=== PATIENT | female | born 1985 | race Caucasian/White ===

== ENCOUNTER 2017-01-11 17:14 | Emergency (ER) | payer MEDICAID ==
[~2017-01-11] VITALS: Ht 162.6 cm; Wt 94.7 kg
[~2017-01-11 17:14] MED LIST: CARB200T PO; CLON1TAB23 PO; DULO60CA7 PO; ESOM20CA PO; ESZO2TAB34 PO; LEVE100020 PO; LORA-446 PO; OXYC-223 PO; OXYC15TA PO; PROP20TA PO
[2017-01-11] MEDS ORDERED: SODIUM CHLORIDE 0.9% 1,000 ML IV ONE (17:53)
[2017-01-11] MEDS ORDERED: SODIUM CHLORIDE FLUSH 10ML SYR IVF ONE (18:00)
[2017-01-11] MEDS ORDERED: ONDANSETRON 2MG/ML, 2ML IVPush ONE (18:00)
[2017-01-11] MEDS ORDERED: ONDANSETRON 2MG/ML, 2ML ONE (18:16)
[2017-01-11] MEDS ORDERED: MORPHINE SULFATE 4 MG/ML, 1ML ONE ×3 (18:16→20:02)
[2017-01-11 18:32] LABS: ASPARTATE AMINO TRANSFERASE 46 U/L (15-37); BLOOD UREA NITROGEN 7 mg/dL (7-18)
[2017-01-11] MEDS: MORPHINE SULFATE 4 MG/ML, 1ML IVPush PRN ×2 (18:52→19:23)
[2017-01-11 19:12] LABS: PATH.CAST-FLAG NOT PRESENT; SPERM-FLAG NOT PRESENT; SRC-FLAG NOT PRESENT; XTAL-FLAG NOT PRESENT; YLC-FLAG NOT PRESENT
[2017-01-11] MEDS ORDERED: METOCLOPRAMIDE 5 MG/ML, 2ML IVPush ONE (20:00)
[2017-01-11] MEDS ORDERED: MORPHINE SULFATE 4 MG/ML, 1ML IVPush ONE (20:00)
[2017-01-11] MEDS ORDERED: METOCLOPRAMIDE 5 MG/ML, 2ML ONE (20:02)
[2017-01-11 21:18] VITALS: BP 108/56
== END 2017-01-11 21:21 | disposition home or self-care (01) ==
LOC: ED 19:21
DX: N30.90 Cystitis, unspecified without hematuria (principal); R10.84 Generalized abdominal pain; R11.2 Nausea with vomiting, unspecified; F15.10 Other stimulant abuse, uncomplicated; Z85.41 Personal history of malignant neoplasm of cervix uteri; Z90.49 Acquired absence of other specified parts of digestive tract; Z90.710 Acquired absence of both cervix and uterus; Z88.6 Allergy status to analgesic agent; Z88.8 Allergy status to other drugs, medicaments and biological substances
CPT/HCPCS: 36415; 74000; 74176; 80053; 81001; 83690; 85025; 87086; 96361; 96374; 96375; 96376; 99285; J2405; J2765; J7030

== ENCOUNTER 2017-03-10 11:17 | Emergency (ER) | payer MEDICAID ==
[~2017-03-10] VITALS: Ht 162.6 cm; Wt 94.8 kg
[2017-03-10 11:22] VITALS: BP 132/90
[2017-03-10 12:39] LABS: BLOOD UREA NITROGEN 7 mg/dL (7-18)
== END 2017-03-10 15:50 | disposition home or self-care (01) ==
LOC: ED 13:35
DX: S62.307A Unspecified fracture of fifth metacarpal bone, left hand, initial encounter for closed fracture (principal); N30.00 Acute cystitis without hematuria; R07.89 Other chest pain; G40.909 Epilepsy, unspecified, not intractable, without status epilepticus; Z88.6 Allergy status to analgesic agent; Z88.8 Allergy status to other drugs, medicaments and biological substances; Z85.41 Personal history of malignant neoplasm of cervix uteri; Y04.0XXA Assault by unarmed brawl or fight, initial encounter; Y93.89 Activity, other specified; Y99.8 Other external cause status; Y92.009 Unspecified place in unspecified non-institutional (private) residence as the place of occurrence of the external cause
CPT/HCPCS: 29125; 36415; 80048; 81001; 82040; 85025; 87086; 99285

== ENCOUNTER 2017-05-17 12:31 | Emergency (ER) | payer MEDICAID ==
[~2017-05-17 12:31] MED LIST changes: +ESZO2TAB22 PO; -ESZO2TAB34 PO; -OXYC-223 PO; +OXYC-306 PO
[2017-05-17 14:06] VITALS: BP 109/63
== END 2017-05-17 14:09 | disposition home or self-care (01) ==
LOC: ED 12:52
DX: S16.1XXA Strain of muscle, fascia and tendon at neck level, initial encounter (principal); S00.83XA Contusion of other part of head, initial encounter; S60.042A Contusion of left ring finger without damage to nail, initial encounter; Z76.0 Encounter for issue of repeat prescription; Z88.6 Allergy status to analgesic agent; Z88.8 Allergy status to other drugs, medicaments and biological substances; Y04.0XXA Assault by unarmed brawl or fight, initial encounter; Y93.89 Activity, other specified; Y92.89 Other specified places as the place of occurrence of the external cause; Y99.8 Other external cause status
CPT/HCPCS: 99284

== ENCOUNTER 2017-12-09 23:16 | Emergency (ER) | payer MEDICAID ==
[~2017-12-09] VITALS: Ht 165.1 cm; Wt 85.0 kg
[2017-12-09] MEDS ORDERED: NALOXONE 0.4 MG/ML, 1ML ONE (23:56)
[2017-12-10] MEDS ORDERED: SODIUM CHLORIDE 0.9% 1,000ML IVBOLUS ONE
[2017-12-10] MEDS ORDERED: NALOXONE 0.4 MG/ML, 1ML IVPush ONE
[2017-12-10 00:07] LABS: BASOPHILS # (AUTO) 0.08 x10^3/uL (0-0.1); BASOPHILS % (AUTO) 1 % (0-1); EOSINOPHILS # (AUTO) 0.29 x10^3/uL (0-0.4); EOSINOPHILS % (AUTO) 3 % (1-7); LYMPHOCYTES # (AUTO) 2.84 x10^3/uL (1-3.4); LYMPHOCYTES % (AUTO) 33 % (22-44); MD NO; MEAN CORPUSCULAR HEMOGLOBIN 28.8 pg (27.0-34.8); MEAN CORPUSCULAR HGB CONC 33.6 g/dL (32.4-35.8); MEAN CORPUSCULAR VOLUME 85.6 fL (80-100); MEAN PLATELET VOLUME 8.4 fL (7.4-10.4); MONOCYTES # (AUTO) 0.56 x10^3/uL (0.2-0.8); MONOCYTES % (AUTO) 7 % (2-9); NEUTROPHILS # (AUTO) 4.75 x10^3/uL (1.8-6.8); NEUTROPHILS % (AUTO) 56 % (42-75); PLATELET COUNT 276 x10^3/uL (130-400); RED BLOOD COUNT 5.14 x10^6/uL (3.82-5.3); RED CELL DISTRIBUTION WIDTH 13.8 % (9.6-15.2)
[2017-12-10 00:18] LABS: ALANINE AMINOTRANSFERASE 47 U/L (12-78); ALBUMIN 3.7 g/dL (3.4-5.0); ANION GAP 6 mmol/L (5-15); CALCIUM 8.7 mg/dL (8.5-10.1); CHLORIDE 107 mmol/L (98-107); SALICYLATE LEVEL 3.1 mg/dL (2.8-20.0)
[2017-12-10 00:20] LABS: ALKALINE PHOSPHATASE 166 U/L (45-117); BILIRUBIN,TOTAL 0.3 mg/dL (0.2-1.0); CREATININE 0.86 mg/dL (0.55-1.02); TOTAL PROTEIN 7.6 g/dL (6.4-8.2)
[2017-12-10 00:22] LABS: ACETAMINOPHEN < 2 mcg/mL (10-30)
[2017-12-10 02:03] LABS: HCG UR SG 1.033 (1.003-1.030)
[2017-12-10 02:05] LABS: MICROSCOPIC INDICATED
[2017-12-10 02:18] LABS: CULTURE INDICATED? NO
[2017-12-10] MEDS ORDERED: NALOXONE 1 MG/ML, 2ML ONE (02:58)
[2017-12-10] MEDS ORDERED: NALOXONE 1 MG/ML, 2ML IVPush ONE (03:00)
[2017-12-10 04:02] VITALS: BP 124/74
== END 2017-12-10 04:53 | disposition home or self-care (01) ==
LOC: ED 23:56
DX: R55 Syncope and collapse (principal); F11.129 Opioid abuse with intoxication, unspecified; I10 Essential (primary) hypertension; F31.9 Bipolar disorder, unspecified; E11.9 Type 2 diabetes mellitus without complications; Z90.49 Acquired absence of other specified parts of digestive tract; Z85.9 Personal history of malignant neoplasm, unspecified; Z88.8 Allergy status to other drugs, medicaments and biological substances
CPT/HCPCS: 36415; 70450; 80053; 80307; 80329; 81001; 81025; 85025; 93005; 96374; 96376; 99285; J2310; J7030; G0480

== ENCOUNTER 2018-02-02 07:09 | Emergency (ER) | payer MEDICAID ==
[~2018-02-02] VITALS: Ht 162.6 cm; Wt 92.4 kg
[2018-02-02] MEDS ORDERED: HYDROcodone/APAP 5/325 TABLET ONE (07:52)
[2018-02-02] MEDS ORDERED: HYDROcodone/APAP 5/325 TABLET PO ONE (08:00)
[2018-02-02 10:34] VITALS: BP 133/76
== END 2018-02-02 10:49 | disposition left against medical advice (07) ==
LOC: ED 08:30
DX: S70.02XA Contusion of left hip, initial encounter (principal); S30.810A Abrasion of lower back and pelvis, initial encounter; F20.3 Undifferentiated schizophrenia; G40.909 Epilepsy, unspecified, not intractable, without status epilepticus; E11.9 Type 2 diabetes mellitus without complications; I10 Essential (primary) hypertension; F31.9 Bipolar disorder, unspecified; F17.210 Nicotine dependence, cigarettes, uncomplicated; Z85.9 Personal history of malignant neoplasm, unspecified; Z76.0 Encounter for issue of repeat prescription; T74.21XA Adult sexual abuse, confirmed, initial encounter; W26.0XXA Contact with knife, initial encounter; Y93.89 Activity, other specified; Y92.59 Other trade areas as the place of occurrence of the external cause; Y99.8 Other external cause status
CPT/HCPCS: 99284

== ENCOUNTER 2018-04-03 09:24 | Emergency (ER) | payer MEDICAID ==
[~2018-04-03] VITALS: Ht 165.1 cm; Wt 80.0 kg
[2018-04-03 09:30] VITALS: BP 141/92
[2018-04-03] MEDS ORDERED: ONDANSETRON ODT 4 MG PO ONE (10:30)
[2018-04-03] MEDS ORDERED: MAALOX/HYOSCYAMINE/LIDOCAINE 45 ML BTL ONE (13:26)
== END 2018-04-03 12:33 | disposition home or self-care (01) ==
LOC: ED 09:32
DX: S06.0X9A Concussion with loss of consciousness of unspecified duration, initial encounter (principal); S02.31XA Fracture of orbital floor, right side, initial encounter for closed fracture; I10 Essential (primary) hypertension; E11.9 Type 2 diabetes mellitus without complications; Z90.49 Acquired absence of other specified parts of digestive tract; Z90.710 Acquired absence of both cervix and uterus; F17.200 Nicotine dependence, unspecified, uncomplicated; Y04.0XXA Assault by unarmed brawl or fight, initial encounter; Y93.89 Activity, other specified; Y92.410 Unspecified street and highway as the place of occurrence of the external cause; Y99.8 Other external cause status
CPT/HCPCS: 70450; 99284

== ENCOUNTER 2018-04-21 01:16 | Emergency (ER) | payer MEDICAID ==
[~2018-04-21] VITALS: Ht 162.6 cm; Wt 75.9 kg
[2018-04-21 01:20] VITALS: BP 133/80
[2018-04-21] MEDS ORDERED: SODIUM CHLORIDE 0.9% 1,000ML IVBOLUS ONE (02:00)
[2018-04-21] MEDS ORDERED: LEVETIRACETAM 1,000 MG in SODIUM CHLORIDE 0.9% 100 ML IV ONE (02:00)
[2018-04-21 02:08] LABS: BASOPHILS # (AUTO) 0.06 x10^3/uL (0-0.1); BASOPHILS % (AUTO) 1 % (0-1); EOSINOPHILS # (AUTO) 0.38 x10^3/uL (0-0.4); EOSINOPHILS % (AUTO) 4 % (1-7); LYMPHOCYTES # (AUTO) 3.34 x10^3/uL (1-3.4); LYMPHOCYTES % (AUTO) 35 % (22-44); MD NO; MEAN CORPUSCULAR HEMOGLOBIN 28.8 pg (27.0-34.8); MEAN CORPUSCULAR HGB CONC 33.6 g/dL (32.4-35.8); MEAN CORPUSCULAR VOLUME 85.5 fL (80-100); MEAN PLATELET VOLUME 8.4 fL (7.4-10.4); MONOCYTES # (AUTO) 0.66 x10^3/uL (0.2-0.8); MONOCYTES % (AUTO) 7 % (2-9); NEUTROPHILS # (AUTO) 5.04 x10^3/uL (1.8-6.8); NEUTROPHILS % (AUTO) 53 % (42-75); PLATELET COUNT 250 x10^3/uL (130-400); RED BLOOD COUNT 5.03 x10^6/uL (3.82-5.3); RED CELL DISTRIBUTION WIDTH 14.2 % (9.6-15.2)
[2018-04-21 02:20] LABS: ALBUMIN 3.6 g/dL (3.4-5.0); ANION GAP 5 mmol/L (5-15); CALCIUM 8.8 mg/dL (8.5-10.1); CHLORIDE 103 mmol/L (98-107)
[2018-04-21 02:25] LABS: ALANINE AMINOTRANSFERASE 54 U/L (12-78); ALKALINE PHOSPHATASE 183 U/L (45-117); BILIRUBIN,TOTAL 0.3 mg/dL (0.2-1.0); CREATININE 0.84 mg/dL (0.55-1.02); TOTAL PROTEIN 7.4 g/dL (6.4-8.2)
[2018-04-21 02:33] LABS: CULTURE INDICATED? YES; MICROSCOPIC INDICATED
[2018-04-21 02:35] LABS: AMPHETAMINE SCREEN, URINE Positive (Negative); BARBITURATE SCREEN, URINE Negative (Negative); BENZODIAZEPINE SCREEN, URINE Negative (Negative); CANNABINOID SCREEN, URINE Negative (Negative); COCAINE SCREEN, URINE Negative (Negative); METHADONE SCREEN, URINE Negative (Negative); OPIATE SCREEN, URINE Positive (Negative)
== END 2018-04-21 03:35 | disposition home or self-care (01) ==
LOC: ED 02:51
DX: G40.409 Other generalized epilepsy and epileptic syndromes, not intractable, without status epilepticus (principal); Z72.9 Problem related to lifestyle, unspecified; F15.129 Other stimulant abuse with intoxication, unspecified; F31.9 Bipolar disorder, unspecified; E11.9 Type 2 diabetes mellitus without complications; I10 Essential (primary) hypertension; F20.9 Schizophrenia, unspecified
CPT/HCPCS: 36415; 80053; 80307; 81001; 84703; 85025; 87086; 96374; 99284; J1953

== ENCOUNTER 2018-05-13 21:12 | Emergency (ER) | payer MEDICAID ==
[~2018-05-13] VITALS: Ht 162.6 cm; Wt 85.0 kg
[2018-05-13] MEDS ORDERED: ONDANSETRON ODT 4 MG PO ONE (21:30)
[2018-05-13] MEDS ORDERED: NAPROXEN 500 MG TABLET PO ONE (21:30)
[2018-05-13 21:47] LABS: BASOPHILS # (AUTO) 0.08 x10^3/uL (0-0.1); BASOPHILS % (AUTO) 1 % (0-1); EOSINOPHILS # (AUTO) 0.14 x10^3/uL (0-0.4); EOSINOPHILS % (AUTO) 1 % (1-7); LYMPHOCYTES # (AUTO) 2.56 x10^3/uL (1-3.4); LYMPHOCYTES % (AUTO) 25 % (22-44); MD NO; MEAN CORPUSCULAR HEMOGLOBIN 28.8 pg (27.0-34.8); MEAN CORPUSCULAR HGB CONC 33.7 g/dL (32.4-35.8); MEAN CORPUSCULAR VOLUME 85.5 fL (80-100); MEAN PLATELET VOLUME 8.6 fL (7.4-10.4); MONOCYTES % (AUTO) 6 % (2-9); NEUTROPHILS # (AUTO) 6.99 x10^3/uL (1.8-6.8); NEUTROPHILS % (AUTO) 67 % (42-75); PLATELET COUNT 221 x10^3/uL (130-400); RED BLOOD COUNT 5.28 x10^6/uL (3.82-5.3); RED CELL DISTRIBUTION WIDTH 14.5 % (9.6-15.2)
[2018-05-13] MEDS ORDERED: ONDANSETRON ODT 4 MG ONE (21:55)
[2018-05-13 21:56] LABS: ALBUMIN 3.7 g/dL (3.4-5.0); ANION GAP 5 mmol/L (5-15); CALCIUM 8.9 mg/dL (8.5-10.1); CHLORIDE 107 mmol/L (98-107); CREATININE 0.81 mg/dL (0.55-1.02)
[2018-05-13] MEDS ORDERED: NAPROXEN 500 MG TABLET ONE (21:56)
[2018-05-13 22:24] VITALS: BP 115/82
== END 2018-05-13 22:42 | disposition home or self-care (01) ==
LOC: ED 22:21
DX: M54.5 Low back pain (principal); M25.551 Pain in right hip; M25.532 Pain in left wrist; M25.512 Pain in left shoulder; M25.562 Pain in left knee; I10 Essential (primary) hypertension; E11.9 Type 2 diabetes mellitus without complications; G40.909 Epilepsy, unspecified, not intractable, without status epilepticus; F17.200 Nicotine dependence, unspecified, uncomplicated
CPT/HCPCS: 36415; 80048; 82040; 84703; 85025; 99284; Q0162

== ENCOUNTER 2020-02-03 12:14 | Emergency (ER) | payer MEDICAID ==
[~2020-02-03] VITALS: Ht 162.6 cm; Wt 113.0 kg
--- NOTE | 2020-02-03 12:20 | NUR ---
LATE ENTRY: PT YELLING AT REGISTRATION STAFF WHEN STAFF ASKED TO TAKE ID COR A COPY. PT YELLING AND SLURRING WORDS, STATING THAT SHE RECENTLY GOT HER ID BACK AND IS WORRIED THAT SHE MIGHT LOSE IT AGAIN. PT EDUCATED THAT REGISTRATION STAFF JUST NEEDS A COPY A DIT WILL BE RETURNED TO HER. PT UNWILLINGLY AGREEABLE. THIS RN AND PT WITNESSED REGISTRATION STAFF PLACE ID BACK INTO PT'S PURSE.
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
--- NOTE | 2020-02-03 13:15 | NUR ---
LINING STUFFER TO BS FOR BLOOD DRAW.
--- NOTE | 2020-02-03 13:20 | NUR ---
PT TO CT.
[2020-02-03] MEDS: SODIUM CHLORIDE FLUSH 10ML SYR IVF ONE (13:30)
--- NOTE | 2020-02-03 13:30 | NUR ---
PT BACK FROM CT.
--- NOTE | 2020-02-03 13:32 | NUR ---
PT UPSET THAT BLOOD IS BEING DRAWN. MARKET BASKET MAKER EDUCATED PT THAT BLOOD LEVELS NEEDED TO BE CHECKED D/T CHIEF COMPLAINT(S). PT UPSET THAT CT IS OF ABD AND PELVIS AND NOT BACK. PT EDUCATED THAT D/T CHIEF COMPLAINTS, RECOMMENDS CT ABD. PT HAS FREQUENT COMPLAINTS AND REQUESTS OF ALL STAFF MEMBERS, AND REQUESTS TO SPEAK WITH PROJECT INSPECTOR. PROJECT INSPECTOR AWARE OF REQUEST.
--- NOTE | 2020-02-03 13:35 | NUR ---
XR TO VELIA.
--- NOTE | 2020-02-03 13:40 | NUR ---
UNABLE TO COMPLETE MED REC. PT DOESN'T KNOW WHAT MEDIACTIONS SHE TAKES.
[2020-02-03 13:43] LABS: BASOPHILS # (AUTO) 0.03 x10^3/uL (0-0.1); BASOPHILS % (AUTO) 0 % (0-1); EOSINOPHILS # (AUTO) 0.18 x10^3/uL (0-0.4); EOSINOPHILS % (AUTO) 3 % (1-7); LYMPHOCYTES # (AUTO) 2.68 x10^3/uL (1-3.4); LYMPHOCYTES % (AUTO) 43 % (22-44); MD NO; MEAN CORPUSCULAR HEMOGLOBIN 28.8 pg (27.0-34.8); MEAN CORPUSCULAR HGB CONC 32.8 g/dL (32.4-35.8); MEAN CORPUSCULAR VOLUME 87.6 fL (80-100); MEAN PLATELET VOLUME 9.6 fL (7.4-10.4); MONOCYTES # (AUTO) 0.35 x10^3/uL (0.2-0.8); MONOCYTES % (AUTO) 6 % (2-9); NEUTROPHILS # (AUTO) 3.08 x10^3/uL (1.8-6.8); NEUTROPHILS % (AUTO) 49 % (42-75); PLATELET COUNT 191 x10^3/uL (130-400); RED BLOOD COUNT 5.06 x10^6/uL (3.82-5.3); RED CELL DISTRIBUTION WIDTH 13.6 % (9.6-15.2)
--- NOTE | 2020-02-03 13:50 | NUR ---
SHIP'S OFFICER TO BS.
--- NOTE | 2020-02-03 13:54 | NUR ---
PT ALSO COMPLAINS OF BLOOD IN URINE. HX HYSTERECTOMY.
[2020-02-03 13:56] LABS: ALBUMIN 3.8 g/dL (3.4-5.0); ANION GAP 5 mmol/L (5-15); CALCIUM 8.8 mg/dL (8.5-10.1); CHLORIDE 108 mmol/L (98-107)
[2020-02-03 14:01] LABS: ALANINE AMINOTRANSFERASE 66 U/L (12-78); ALKALINE PHOSPHATASE 163 U/L (45-117); BILIRUBIN,TOTAL 0.2 mg/dL (0.2-1.0); CREATININE 1.17 mg/dL (0.55-1.02); TOTAL PROTEIN 7.5 g/dL (6.4-8.2)
[2020-02-03] MEDS ORDERED: ONDANSETRON 2MG/ML, 2ML ONE (14:01)
[2020-02-03] MEDS ORDERED: MORPHINE SULFATE 4 MG/ML, 1ML ONE (14:02)
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
[2020-02-03 14:26] LABS: MICROSCOPIC NOT IND
--- NOTE | 2020-02-03 14:26 | NUR ---
PT REQUESTING DOOR BE OPEN AND ARGUING WITH THIS RN STATING, "THE DOOR HAS BEEN OPEN THIS WHOLE TIME. I NEED IT OPEN BECAUSE OF MY PAST." THIS RN HAS CLOSED THE DOOR BEHIND ALL STAFF THAT HAS ENTERED OR EXITED. PT EDUCATED THAT D/T AIR FLOW REQUIRED FOR RESP ROOMS, DOOR MUST REMAIN CLOSED. PT RELUCTANLY AGREEABLE TO DOOR CLOSED AND CURTAIN OPEN.
[2020-02-03] MEDS: ONDANSETRON 2MG/ML, 2ML IVPush ONE ×2 (14:30→14:33)
[2020-02-03 14:32] VITALS: BP 116/68
[2020-02-03 14:33] LABS: CULTURE INDICATED? NO
[2020-02-03] MEDS: MORPHINE SULFATE 4 MG/ML, 1ML IVPush PRN ×2 (14:33→15:04)
--- NOTE | 2020-02-03 14:46 | NUR ---
PIV NO LONGER PATENT. PT DID NOT RECEIVE IV ZOFRAN OR MORPHINE. THESE ARE THE ONLY MEDICATIONS ORDERED AND PT'S WORKUP IS COMPLETE AND NORMAL, MD JONES NOTIFIED AND ASKED FOR ALTERNATIVE ROUTE. DR. JONES WILL COME TO SPEAK WITH PT AT BS. FOR NOW, DO NOT START NEW IV AND HOLD MEDICATIONS.
--- NOTE | 2020-02-03 14:47 | NUR ---
PT UPSET THAT IV IS NOT PATENT AND THIS RN IS NOT STARTING A NEW IV AT THIS TIME. PT STATES SHE "DOESN'T WANT TO WAIT ANOTHER HALF AN HOUR FOR ORAL MEDICATIONS TO KICK IN." MD JONES AWARE AND WILL TALK TO PT BS.
--- NOTE | 2020-02-03 14:58 | NUR ---
DR. JONES TO BS TO UPDATE ON RESULTS AND POC. PLAN TO DC. DR. JONES OFFERED MEDICATIONS (STEROID) TO DECREASE INFLAMMATION. PT REFUSED, STATING "I DON'T WANT TO GAIN ANY WEIGHT." DR. JONES EDUCATED PT THAT IT WOULD BE SHORT TERM AND LOW DOSE. PT CONTINUES TO REFUSE. DC EDUCATION PROVIDED BY DR. JONES. PT UPSET THAT ER DID NOT FIND AN ANSWER TO WHY HER ABD IS HURTING. PT EDUCATED THAT SHE WILL NEED TO FOLLOW UP WITH PCP. PT RELUCTANTLY AGREEABLE. PIV NO LONGER PATENT AND REMOVED. PT REFUSED ANY TAPE. PT EDUCATED TO HOLD PRESSURE TO SITE UNTIL BLEEDING STOPS.
--- NOTE | 2020-02-03 15:02 | NUR ---
PER DR. JONES, NO PAIN MEDICATIONS AT THIS TIME.
== END 2020-02-03 15:21 | disposition home or self-care (01) ==
LOC: ED 14:29
DX: S39.012A Strain of muscle, fascia and tendon of lower back, initial encounter (principal); M47.896 Other spondylosis, lumbar region; E11.9 Type 2 diabetes mellitus without complications; F17.200 Nicotine dependence, unspecified, uncomplicated; R11.10 Vomiting, unspecified; R19.7 Diarrhea, unspecified; R31.9 Hematuria, unspecified; Z88.5 Allergy status to narcotic agent; Z88.8 Allergy status to other drugs, medicaments and biological substances; X58.XXXA Exposure to other specified factors, initial encounter; Y93.89 Activity, other specified; Y92.89 Other specified places as the place of occurrence of the external cause; Y99.8 Other external cause status
CPT/HCPCS: 36415; 71045; 74176; 80053; 81003; 83690; 85025; 99285; J2405; J2270

== ENCOUNTER 2020-02-18 09:32 | Emergency (ER) | payer MEDICAID ==
[~2020-02-18] VITALS: Ht 162.6 cm; Wt 112.0 kg
[~2020-02-18 09:32] MED LIST changes: -OXYC15TA PO; +OXYC15TA3 PO
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
--- NOTE | 2020-02-18 10:10 | NUR ---
pa was in room. as
--- NOTE | 2020-02-18 10:20 | NUR ---
lab at bedside. pt falling asleep during lab draw. as
[2020-02-18 10:44] LABS: BASOPHILS # (AUTO) 0.03 x10^3/uL (0-0.1); BASOPHILS % (AUTO) 1 % (0-1); EOSINOPHILS # (AUTO) 0.27 x10^3/uL (0-0.4); EOSINOPHILS % (AUTO) 5 % (1-7); LYMPHOCYTES # (AUTO) 2.56 x10^3/uL (1-3.4); LYMPHOCYTES % (AUTO) 45 % (22-44); MD NO; MEAN CORPUSCULAR HEMOGLOBIN 28.8 pg (27.0-34.8); MEAN CORPUSCULAR HGB CONC 32.6 g/dL (32.4-35.8); MEAN CORPUSCULAR VOLUME 88.4 fL (80-100); MONOCYTES # (AUTO) 0.36 x10^3/uL (0.2-0.8); MONOCYTES % (AUTO) 6 % (2-9); NEUTROPHILS # (AUTO) 2.48 x10^3/uL (1.8-6.8); NEUTROPHILS % (AUTO) 44 % (42-75); PLATELET COUNT 199 x10^3/uL (130-400); RED BLOOD COUNT 4.82 x10^6/uL (3.82-5.3); RED CELL DISTRIBUTION WIDTH 13.8 % (9.6-15.2)
[2020-02-18 10:54] LABS: ALANINE AMINOTRANSFERASE 76 U/L (12-78); ALBUMIN 3.5 g/dL (3.4-5.0); ANION GAP 6 mmol/L (5-15); CALCIUM 8.4 mg/dL (8.5-10.1); CHLORIDE 109 mmol/L (98-107)
[2020-02-18 10:55] LABS: ALKALINE PHOSPHATASE 197 U/L (45-117); BILIRUBIN,TOTAL 0.4 mg/dL (0.2-1.0); TOTAL PROTEIN 7.1 g/dL (6.4-8.2)
[2020-02-18 11:04] LABS: MICROSCOPIC AUTO
[2020-02-18 11:14] LABS: AMPHETAMINE SCREEN, URINE Positive (Negative); BARBITURATE SCREEN, URINE Negative (Negative); BENZODIAZEPINE SCREEN, URINE Positive (Negative); CANNABINOID SCREEN, URINE Negative (Negative); COCAINE SCREEN, URINE Negative (Negative); METHADONE SCREEN, URINE Negative (Negative); OPIATE SCREEN, URINE Positive (Negative)
--- NOTE | 2020-02-18 11:22 | NUR ---
utox back- positive for opiates/benzos/amphetamines. pt was asking for pain medication, speficially dilaudid. PA notified, had discussion w/ provider re: pain mgmt, meds/allergies. h and p from 2015 reviewed. pt very conflicting in the history she provides. pt was able to walk to bathroom w/ standby assist. fredis mullen in room. as
[2020-02-18 11:30] VITALS: BP 110/62
== END 2020-02-18 12:09 | disposition home or self-care (01) ==
LOC: ED 11:20
DX: H10.021 Other mucopurulent conjunctivitis, right eye (principal); F15.10 Other stimulant abuse, uncomplicated; G89.29 Other chronic pain; R10.84 Generalized abdominal pain; R07.89 Other chest pain; R00.0 Tachycardia, unspecified; F17.200 Nicotine dependence, unspecified, uncomplicated; I25.2 Old myocardial infarction; E11.9 Type 2 diabetes mellitus without complications; Z90.49 Acquired absence of other specified parts of digestive tract; Z90.710 Acquired absence of both cervix and uterus; Z90.721 Acquired absence of ovaries, unilateral
CPT/HCPCS: 36415; 80053; 80307; 81001; 83690; 85025; 93005; 99284

== ENCOUNTER 2020-04-28 03:38 | Inpatient (IN) | payer MEDICAID ==
[~2020-04-28] VITALS: Ht 170.2 cm; Wt 114.7 kg
[2020-04-28] MEDS ORDERED: SODIUM CHLORIDE 0.9% 1,000ML IVBOLUS ONE (04:00)
[2020-04-28 04:39] LABS: AMPHETAMINE SCREEN, URINE Positive (Negative); BARBITURATE SCREEN, URINE Negative (Negative); BENZODIAZEPINE SCREEN, URINE Negative (Negative); CANNABINOID SCREEN, URINE Negative (Negative); COCAINE SCREEN, URINE Negative (Negative); METHADONE SCREEN, URINE Negative (Negative); OPIATE SCREEN, URINE Positive (Negative)
[2020-04-28 05:19] LABS: BASOPHILS # (AUTO) 0.05 x10^3/uL (0-0.1); BASOPHILS % (AUTO) 1 % (0-1); EOSINOPHILS % (AUTO) 2 % (1-7); LYMPHOCYTES # (AUTO) 3.33 x10^3/uL (1-3.4); LYMPHOCYTES % (AUTO) 29 % (22-44); MD NO; MEAN CORPUSCULAR HEMOGLOBIN 28.9 pg (27.0-34.8); MEAN CORPUSCULAR HGB CONC 32.9 g/dL (32.4-35.8); MEAN CORPUSCULAR VOLUME 87.8 fL (80-100); MEAN PLATELET VOLUME 8.2 fL (7.4-10.4); MONOCYTES # (AUTO) 0.58 x10^3/uL (0.2-0.8); MONOCYTES % (AUTO) 5 % (2-9); NEUTROPHILS # (AUTO) 7.51 x10^3/uL (1.8-6.8); NEUTROPHILS % (AUTO) 64 % (42-75); PLATELET COUNT 266 x10^3/uL (130-400); RED BLOOD COUNT 4.77 x10^6/uL (3.82-5.3); RED CELL DISTRIBUTION WIDTH 15.1 % (9.6-15.2)
[2020-04-28 05:31] LABS: ALBUMIN 3.7 g/dL (3.4-5.0); ANION GAP 7 mmol/L (5-15); CALCIUM 8.9 mg/dL (8.5-10.1); CHLORIDE 110 mmol/L (98-107); SALICYLATE LEVEL 5.5 mg/dL (2.8-20.0)
[2020-04-28 05:34] LABS: ALANINE AMINOTRANSFERASE 24 U/L (12-78); ALKALINE PHOSPHATASE 135 U/L (45-117); BILIRUBIN,TOTAL 0.3 mg/dL (0.2-1.0); CREATININE 0.82 mg/dL (0.55-1.02); TOTAL PROTEIN 7.4 g/dL (6.4-8.2)
--- NOTE | 2020-04-28 05:44 | NUR ---
info for Char (mom) & Juliane ONLY password: little baby
--- NOTE | 2020-04-28 06:26 | NUR ---
PT RESTING IN BED AWAKE AND STARING AT CEILING. PT REFUSES TO TALK BUT SEEMS TO UNDERSTAND WHAT PEOPLE ARE SAYING. PT ATTACHED TO MONITORS. HONING MACHINE OPERATOR SEMIAUTOMATIC WILL CONTINUE TO MONITOR PT VSS
--- NOTE | 2020-04-28 06:54 | NUR ---
report received from brando gordon.
--- NOTE | 2020-04-28 07:20 | NUR ---
pt removed gown. this rn put gown on and attched monitors again. pt aox1, but seems to understand. resps even and unlabored.
--- NOTE | 2020-04-28 08:09 | NUR ---
pt sat down on the floor. pt is still aox1. this rn/riri rn/emt helped pt to put pt back to [facility].
--- NOTE | 2020-04-28 09:08 | NUR ---
family member at bedside at this time.
--- NOTE | 2020-04-28 09:31 | NUR ---
PT IS AGITATED AND CAN'T STOP MOVING. UNABLE TO TAKE BP AT THIS TIME.
--- NOTE | 2020-04-28 10:14 | NUR ---
DIET TRAY ORDERED AT THIS TIME.
--- NOTE | 2020-04-28 10:54 | NUR ---
DIET TRAY PROVIDED AT THIS TIME.
--- NOTE | 2020-04-28 11:13 | NUR ---
PT AGITATED AND URINATED ON FLOOR. CLEAN LENEN PROVIDED. PT IS ABLE TO TALK BUT SPEECH IS NOT CLEAR STILL. UNSTEADY ON FEET. PT'S AT BEDSIDE.
--- NOTE | 2020-04-28 11:42 | NUR ---
PT WHELEED TO BR. PT BACK TO BED. SPEECH UNCLEAR STILL. UNSTEADY ON FEET.
--- NOTE | 2020-04-28 11:53 | NUR ---
AGUSTIN(PT'S ) [phone] JABIER(PT'S MOTHER) [phone]
--- NOTE | 2020-04-28 11:53 | NUR ---
PT ATTEMPTED TO GET OUT OF BED A FEW TIMES. SITTER REQUESTED BY CHARGE NURSE. PT'S LEFT AT THIS TIME.
--- NOTE | 2020-04-28 12:18 | NUR ---
PT ATTEMPTED TO GET OUT OF BED A FEW TIMES. PT EDUCATED REGARDING FALL RISKS A FEW TIMES, BUT PT STILL ATTEMPTED TO GET OUT FROM BED. EMT CALLED SECURITY AND SOFT RESTRAINTS APPLIED BY SECURITY AT THIS TIME. EDMD NOTIFIED. SITTER AT BEDSIDE.
[2020-04-28] MEDS ORDERED: SODIUM CHLORIDE FLUSH 10ML SYR IVF PRN (12:30)
[2020-04-28] MEDS: LACTATED RINGERS 1,000 ML IV SCH ×2 (13:00→18:41)
[2020-04-28] MEDS ORDERED: ACETAMINOPHEN 325 MG TABLET PO PRN (13:00)
[2020-04-28] MEDS ORDERED: ONDANSETRON ODT 4 MG PO PRN (13:00)
[2020-04-28] MEDS ORDERED: LABETALOL 5MG/ML, 20ML IVPush PRN (13:00)
[2020-04-28] MEDS ORDERED: hydrALAzine 20 MG/ML, 1ML IVPush PRN (13:00)
[2020-04-28] MEDS ORDERED: ONDANSETRON 2MG/ML, 2ML IVPush PRN (13:00)
--- NOTE | 2020-04-28 13:01 | NUR ---
Mother Char called and provided password "little baby." She said that patients brother Juan A is going to stop by and see patient in the ED and would like Juan A to be able to see patient.
--- NOTE | 2020-04-28 13:38 | NUR ---
break rn note: pt refusing to keep any monitors on, vs reassessed. sitter at bedside. brother at bedside. brother and pt informed of poc. pt is figety, mildly anxious. pt's brother requests sedation, MD Grant informed. Per , sedation is contraindicated d/t pt's recent hx polypharmacy and suspected overdose. report given back to primary RN Rosa.
[2020-04-28] MEDS ORDERED: ENOXAPARIN 40 MG/0.4 ML ONE (13:58)
[2020-04-28] MEDS ORDERED: NICOTINE 21 MG/24 HR PATCH.TD24 ONE (13:59)
[2020-04-28] MEDS: NICOTINE 21 MG/24 HR PATCH.TD24 TD SCH (14:05)
[2020-04-28] MEDS: ENOXAPARIN 40 MG/0.4 ML SQ SCH (14:05)
--- NOTE | 2020-04-28 14:11 | NUR ---
PT MEDICATED PER EMAR. LR INFUSING AT THIS TIME. PT TOLERATED WELL.
--- NOTE | 2020-04-28 14:47 | NUR ---
right arm soft restraint removed. pt has only left arm soft restraint at this time. pt's aox1. resps even and unlabored. sitter at bedside at this time.
--- NOTE | 2020-04-28 14:58 | NUR ---
all restraint removed at this time. pt used bedside comode with two law office assistant. pt resting on [facility].
--- NOTE | 2020-04-28 15:16 | NUR ---
REPORT GIVEN TO JOHNNIE RN. ALL QUESTIONS ANSWERED.
[2020-04-28 16:20] VITALS: BP 132/79
[2020-04-28] MEDS: BACLOFEN 10 MG TABLET PO PRN (16:24)
[2020-04-28] MEDS ORDERED: OMNIPAQUE 350 MG/ML, 100ML BOTTLE ONE (17:34)
[2020-04-28] MEDS: QUETIAPINE 25MG TABLET PO SCH ×2 (18:37→22:52)
[2020-04-28] MEDS ORDERED: GABA-827 PO (19:18)
[2020-04-28] MEDS ORDERED: ESCI10TA10 PO (19:18)
[2020-04-28] MEDS ORDERED: POTA10TA6 PO (19:18)
[2020-04-28] MEDS ORDERED: BUPR1FIL3 PO (19:18)
[2020-04-28] MEDS ORDERED: CARI4.5C PO (19:21)
[2020-04-28] MEDS ORDERED: METH10CP PO (19:21)
[2020-04-28 20:41] VITALS: BP 126/72
[2020-04-28] MEDS: MELATONIN 5 MG TABLET PO PRN (22:52)
[2020-04-29 00:30] VITALS: BP 123/66
[2020-04-29] MEDS: LACTATED RINGERS 1,000 ML IV SCH ×5 (01:54→23:18)
[2020-04-29 04:29] LABS: MICROSCOPIC AUTO
[2020-04-29 05:22] LABS: ALBUMIN 3.4 g/dL (3.4-5.0); ANION GAP 7 mmol/L (5-15); CALCIUM 9.4 mg/dL (8.5-10.1); CHLORIDE 117 mmol/L (98-107)
[2020-04-29 05:25] LABS: ALANINE AMINOTRANSFERASE 20 U/L (12-78); ALKALINE PHOSPHATASE 121 U/L (45-117); BILIRUBIN,TOTAL 0.5 mg/dL (0.2-1.0); CREATININE 0.83 mg/dL (0.55-1.02); TOTAL PROTEIN 6.8 g/dL (6.4-8.2)
[2020-04-29 06:15] LABS: MEAN CORPUSCULAR HEMOGLOBIN 29.3 pg (27.0-34.8); MEAN CORPUSCULAR HGB CONC 33.4 g/dL (32.4-35.8); MEAN CORPUSCULAR VOLUME 87.7 fL (80-100); MEAN PLATELET VOLUME 9.6 fL (7.4-10.4); PLATELET COUNT 143 x10^3/uL (130-400); RED BLOOD COUNT 4.45 x10^6/uL (3.82-5.3); RED CELL DISTRIBUTION WIDTH 15.2 % (9.6-15.2)
[2020-04-29 06:16] LABS: BASOPHILS # (AUTO) 0.15 x10^3/uL (0-0.1); BASOPHILS % (AUTO) 1 % (0-1); EOSINOPHILS # (AUTO) 0.01 x10^3/uL (0-0.4); EOSINOPHILS % (AUTO) 0 % (1-7); LYMPHOCYTES # (AUTO) 3.45 x10^3/uL (1-3.4); LYMPHOCYTES % (AUTO) 27 % (22-44); MD SCAN; MONOCYTES # (AUTO) 0.67 x10^3/uL (0.2-0.8); MONOCYTES % (AUTO) 5 % (2-9); NEUTROPHILS # (AUTO) 8.56 x10^3/uL (1.8-6.8); NEUTROPHILS % (AUTO) 67 % (42-75)
[2020-04-29 07:20] VITALS: BP 119/73
[2020-04-29] MEDS: QUETIAPINE 25MG TABLET PO SCH ×2 (09:44→22:04)
[2020-04-29] MEDS: SENNA/DOCUSATE TABLET PO SCH (09:44)
[2020-04-29] MEDS: CARIPRAZINE HCL HOMEMEDPO SCH (12:07)
[2020-04-29] MEDS: METHYLPHENIDATE HCL 20 MG HOMEMEDPO SCH (12:26)
[2020-04-29] MEDS: BUPRENORPHINE HCL/NALOXONE 8-2MG FILM SL SCH (12:31)
[2020-04-29] MEDS: NICOTINE 21 MG/24 HR PATCH.TD24 TD SCH (12:31)
[2020-04-29] MEDS: GABAPENTIN 300 MG CAPSULE PO SCH ×3 (12:32→22:04)
[2020-04-29] MEDS: ESCITALOPRAM 10MG TABLET PO SCH (12:32)
[2020-04-29 13:17] VITALS: BP 121/73
[2020-04-29] MEDS: BACLOFEN 10 MG TABLET PO PRN ×2 (14:12→22:05)
[2020-04-29] MEDS: ENOXAPARIN 40 MG/0.4 ML SQ SCH (14:13)
[2020-04-29] MEDS ORDERED: LISI5TAB7 PO (18:16)
[2020-04-29] MEDS ORDERED: SULF-16 PO (18:16)
[2020-04-29] MEDS ORDERED: AMIT25TA PO (18:16)
[2020-04-29] MEDS ORDERED: ESCI10TA PO (18:16)
[2020-04-29] MEDS ORDERED: TOPI100T8 PO ×2 (18:16)
[2020-04-29] MEDS ORDERED: CARI1CAP PO (18:16)
[2020-04-29] MEDS ORDERED: ATOM80CA PO (18:16)
[2020-04-29] MEDS ORDERED: LEVE100020 PO (18:16)
[2020-04-29 18:20] VITALS: BP 142/83
[2020-04-29] MEDS: MELATONIN 5 MG TABLET PO PRN (22:04)
[2020-04-29] MEDS ORDERED: BUPRENORPHINE/NALOXONE 8-2MG SL SCH (23:00)
[2020-04-29] MEDS ORDERED: BUPRENORPHINE HCL/NALOXONE 8-2MG FILM SL SCH (23:00)
[2020-04-29] MEDS ORDERED: BUPRENORPHINE HCL/NALOXONE 8-2MG FILM SL ONE (23:50)
[2020-04-30 00:06] VITALS: BP 118/66
[2020-04-30] MEDS: LACTATED RINGERS 1,000 ML IV SCH ×3 (03:41→13:14)
[2020-04-30] MEDS: GABAPENTIN 300 MG CAPSULE PO SCH ×2 (05:29→11:31)
[2020-04-30 07:21] VITALS: BP 97/61
[2020-04-30] MEDS ORDERED: POTASSIUM CHLORIDE 10 MEQ TABLET.ER PO SCH (09:00)
[2020-04-30] MEDS: SENNA/DOCUSATE TABLET PO SCH (09:25)
[2020-04-30] MEDS: CARIPRAZINE HCL HOMEMEDPO SCH (09:25)
[2020-04-30] MEDS: METHYLPHENIDATE HCL 20 MG HOMEMEDPO SCH (09:25)
[2020-04-30] MEDS: QUETIAPINE 25MG TABLET PO SCH (09:25)
[2020-04-30] MEDS: ESCITALOPRAM 10MG TABLET PO SCH (09:26)
[2020-04-30] MEDS: BUPRENORPHINE HCL/NALOXONE 8-2MG FILM SL SCH (09:26)
[2020-04-30] MEDS ORDERED: SULF1TAB24 PO (09:42)
[2020-04-30 12:32] VITALS: BP 118/75
[2020-04-30] MEDS: NICOTINE 21 MG/24 HR PATCH.TD24 TD SCH (13:23)
== END 2020-04-30 13:37 | disposition home or self-care (01) | DRG 918 ==
LOC: ED 04:08 → EDIP 12:54 → 5SO 15:40 → DCLOUNGE 04-30 13:30
PROVIDERS: ADMIT Family Medicine; ATTEND Family Medicine
PROC: 0T9B70Z Drainage of Bladder with Drainage Device, Via Natural or Artificial Opening (ICD-10-PCS; principal; 2020-04-28)
DX: T43.621A Poisoning by amphetamines, accidental (unintentional), initial encounter (principal); J98.11 Atelectasis; N13.6 Pyonephrosis; E11.9 Type 2 diabetes mellitus without complications; E78.5 Hyperlipidemia, unspecified; F17.200 Nicotine dependence, unspecified, uncomplicated; F20.9 Schizophrenia, unspecified; F31.9 Bipolar disorder, unspecified; F43.10 Post-traumatic stress disorder, unspecified; G24.9 Dystonia, unspecified; G40.909 Epilepsy, unspecified, not intractable, without status epilepticus; I10 Essential (primary) hypertension; Z85.42 Personal history of malignant neoplasm of other parts of uterus; Z86.73 Personal history of transient ischemic attack (TIA), and cerebral infarction without residual deficits; Z85.6 Personal history of leukemia; Z87.11 Personal history of peptic ulcer disease; Z87.442 Personal history of urinary calculi; Z90.710 Acquired absence of both cervix and uterus; T40.1X1A Poisoning by heroin, accidental (unintentional), initial encounter; Y92.89 Other specified places as the place of occurrence of the external cause; Z79.4 Long term (current) use of insulin
CPT/HCPCS: 31500; 36415; 70450; 74174; 80053; 80307; 81001; 83735; 85025; 87086; 93005; 96360; 96361; 96372; 99285; G0378; J1650; Q0162; Q9967; J7030; J7120

== ENCOUNTER 2020-08-12 09:11 | Emergency (ER) | payer MEDICAID ==
[~2020-08-12] VITALS: Ht 162.6 cm; Wt 90.0 kg
[~2020-08-12 09:11] MED LIST changes: +AMIT25TA PO; +ATOM80CA PO; +BUPR1FIL3 PO; +CARI1CAP PO; +CARI4.5C PO; +ESCI10TA PO; +ESCI10TA10 PO; +GABA-827 PO; +LISI5TAB7 PO; +METH10CP PO; +POTA10TA6 PO; +SULF-16 PO; +SULF1TAB24 PO; +TOPI100T8 PO
[2020-08-12] MEDS ORDERED: SODIUM CHLORIDE FLUSH 10ML SYR IVF ONE (09:30)
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
[2020-08-12 10:18] LABS: BASOPHILS % (AUTO) 1 % (0-1); EOSINOPHILS % (AUTO) 3 % (1-7); LYMPHOCYTES % (AUTO) 38 % (22-44); MEAN CORPUSCULAR HEMOGLOBIN 28.9 pg (27.0-34.8); MEAN CORPUSCULAR HGB CONC 33.5 g/dL (32.4-35.8); MEAN PLATELET VOLUME 8.9 fL (7.4-10.4); MONOCYTES % (AUTO) 8 % (2-9); NEUTROPHILS % (AUTO) 50 % (42-75); PLATELET COUNT 225 x10^3/uL (130-400); RED BLOOD COUNT 4.52 x10^6/uL (3.82-5.3); RED CELL DISTRIBUTION WIDTH 14.2 % (9.6-15.2)
[2020-08-12 10:22] LABS: MD NO
[2020-08-12 10:27] LABS: ALANINE AMINOTRANSFERASE 23 U/L (12-78); ALBUMIN 3.6 g/dL (3.4-5.0); ANION GAP 6 mmol/L (5-15); CALCIUM 8.9 mg/dL (8.5-10.1); CHLORIDE 107 mmol/L (98-107); CREATININE 0.64 mg/dL (0.55-1.02)
[2020-08-12 10:29] LABS: ALKALINE PHOSPHATASE 137 U/L (45-117); BILIRUBIN,TOTAL 0.4 mg/dL (0.2-1.0); TOTAL PROTEIN 7.1 g/dL (6.4-8.2)
--- NOTE | 2020-08-12 11:48 | NUR ---
Patient/Caregiver given discharge instructions and they have confirmed that they understand the instructions. Patient ambulatory with steady gait.
[2020-08-12 11:49] VITALS: BP 112/68
== END 2020-08-12 11:51 | disposition home or self-care (01) ==
LOC: ED 11:30
DX: S06.9X1A Unspecified intracranial injury with loss of consciousness of 30 minutes or less, initial encounter (principal); R56.9 Unspecified convulsions; C53.9 Malignant neoplasm of cervix uteri, unspecified; F17.200 Nicotine dependence, unspecified, uncomplicated; Z90.49 Acquired absence of other specified parts of digestive tract; Z90.710 Acquired absence of both cervix and uterus; Y04.0XXA Assault by unarmed brawl or fight, initial encounter; Y93.89 Activity, other specified; Y92.89 Other specified places as the place of occurrence of the external cause; Y99.8 Other external cause status
CPT/HCPCS: 36415; 70450; 80053; 80177; 85025; 93005; 99285

== ENCOUNTER 2020-12-24 14:57 | Emergency (ER) | payer MEDICAID ==
[~2020-12-24] VITALS: Ht 162.6 cm; Wt 100.0 kg
[~2020-12-24 14:57] MED LIST changes: -ESCI10TA PO; +ESCI10TA97 PO; -OXYC-306 PO; +OXYC1TAB17 PO
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
--- NOTE | 2020-12-24 15:08 | NUR ---
PT WITH $160. STATES SHE DOES NOT WANT HER MONEY TO GO TO SECURITY. PLACED IN LAB BAG AND LABELED.
--- NOTE | 2020-12-24 16:22 | NUR ---
DR. JACOB TO BEDSIDE FOR EVALUATION.
[2020-12-24] MEDS ORDERED: NALOXONE 0.4 MG/ML, 1ML ONE ×2 (16:45→19:01)
[2020-12-24 16:53] LABS: ANION GAP 7 mmol/L (5-15); CALCIUM 8.3 mg/dL (8.5-10.1); CHLORIDE 106 mmol/L (98-107); SALICYLATE LEVEL 4.1 mg/dL (2.8-20.0)
[2020-12-24] MEDS: NALOXONE 0.4 MG/ML, 1ML IVPush PRN ×2 (16:57→19:06)
[2020-12-24 16:58] LABS: ALANINE AMINOTRANSFERASE 30 U/L (12-78); ALKALINE PHOSPHATASE 241 U/L (45-117); BILIRUBIN,TOTAL 0.4 mg/dL (0.2-1.0); CREATININE 0.84 mg/dL (0.55-1.02); TOTAL PROTEIN 7.2 g/dL (6.4-8.2)
--- NOTE | 2020-12-24 17:03 | NUR ---
pt almost unrousable and slept through straight cath and this rn shaking and loudly saying name. after narcan, pt awake sitting up and able to answer questions.
--- NOTE | 2020-12-24 17:08 | NUR ---
AFTER NARCAN ADMIN PT AWAKE AND ALERT STATING "DID YOU GUYS GIVE ME NARCAN?!" PT THEN STARTED SHAKING BODY STATING SHE WAS GOING TO HAVE A SEZIURE, THIS RN OBSERVED PT AND SHE STOPPED SHAKING BODY AND DID NOT HAVE A SEZIURE.
--- NOTE | 2020-12-24 17:34 | NUR ---
PT TO CT
[2020-12-24 17:35] LABS: MICROSCOPIC INDICATED
[2020-12-24 17:40] LABS: AMPHETAMINE SCREEN, URINE Positive (Negative); BARBITURATE SCREEN, URINE Negative (Negative); BENZODIAZEPINE SCREEN, URINE Negative (Negative); CANNABINOID SCREEN, URINE Negative (Negative); COCAINE SCREEN, URINE Negative (Negative); METHADONE SCREEN, URINE Positive (Negative); OPIATE SCREEN, URINE Positive (Negative)
--- NOTE | 2020-12-24 17:53 | NUR ---
pt asleep. vss. nadn.
[2020-12-24 18:20] LABS: BASOPHILS % (AUTO) 1 % (0-1); EOSINOPHILS % (AUTO) 4 % (1-7); LYMPHOCYTES % (AUTO) 25 % (22-44); MEAN CORPUSCULAR HGB CONC 32.6 g/dL (32.4-35.8); MEAN PLATELET VOLUME 8.3 fL (7.4-10.4); MONOCYTES % (AUTO) 7 % (2-9); NEUTROPHILS % (AUTO) 64 % (42-75); PLATELET COUNT 311 x10^3/uL (130-400); RED BLOOD COUNT 4.29 x10^6/uL (3.82-5.3)
--- NOTE | 2020-12-24 18:20 | NUR ---
pt sitting up eating. vss,
[2020-12-24 18:21] LABS: MD NO
--- NOTE | 2020-12-24 18:51 | NUR ---
report given to Sapna gordon.
[2020-12-24] MEDS ORDERED: NALOXONE 0.4 MG/ML, 1ML IVPush PRN (19:00)
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
--- NOTE | 2020-12-24 19:22 | NUR ---
PT WOKE UP IMMEDIATELY AFTER IV NARCAN. STATES, "I'M ON [employer], THEY'RE NOT SUPPOSED TO BE GIVING ME NARCAN". UPDATED PT ON POC. STATES SHE LIVES WITH HER MOM BUT HER MOTHER IS UNABLE TO PICK HER UP. PT STATES SHE WOULD BE ABLE TO TAKE A CAB HOME IF ERP DEEMS SAFE TO DISCHARGE.
[2020-12-24 20:20] VITALS: BP 102/54
--- NOTE | 2020-12-24 20:40 | NUR ---
PT AROUSES TO VOICE, CONVERSING NORMALLY, A&OX4. AMBULATED TO BR WITHOUT DIFFICULTY. DR. SHARP UPDATED ON PT STATUS. PT ALSO CONCERNED ABOUT SKIN WOUND TO R SHOULDER, STATES SHE "DRAINED IT" AT HOME. NOW LOOKS RED, ABOUT [address] SHARP NOTIFIED, STATES TO ADVISE PT TO F/U WITH PCP/CLINIC FOR TREATMENT.
--- NOTE | 2020-12-24 21:11 | NUR ---
D/C INSTRUCTIONS, MEDS & F/U APPT'S RV'WD WITH PT, SHE VERBALIZES UNDERSTANDING. ADVISED PT TO CONTINUE TAKING SEIZURE MEDICATION, TO F/U WITH PCP OR CLINIC REGARDING R SHOULDER SKIN INFECTION. CAB VOUCHER PROVIDED TO PT. PT A&OX4, AMBULATED OUT OF ED WITHOUT DIFFICULTY.
== END 2020-12-24 21:12 | disposition home or self-care (01) ==
LOC: ED 18:04
DX: T40.3X1A Poisoning by methadone, accidental (unintentional), initial encounter (principal); G40.409 Other generalized epilepsy and epileptic syndromes, not intractable, without status epilepticus; R06.89 Other abnormalities of breathing; R94.31 Abnormal electrocardiogram [ECG] [EKG]; F17.210 Nicotine dependence, cigarettes, uncomplicated; E11.9 Type 2 diabetes mellitus without complications; Z90.49 Acquired absence of other specified parts of digestive tract; Z90.710 Acquired absence of both cervix and uterus; Z85.41 Personal history of malignant neoplasm of cervix uteri; Y93.89 Activity, other specified
CPT/HCPCS: 36415; 70450; 71045; 80053; 80143; 80179; 80203; 80307; 80320; 81001; 84703; 85025; 87086; 93005; 96374; 96376; 99285; 99406; J2310; 80299; 80329; G0480

== ENCOUNTER 2021-05-28 11:03 | Emergency (ER) | payer MEDICAID ==
[~2021-05-28] VITALS: Ht 162.6 cm; Wt 99.7 kg
[~2021-05-28 11:03] MED LIST changes: +OXYC1TAB16 PO; -OXYC1TAB17 PO; +SULF-23 PO; -SULF1TAB24 PO
--- NOTE | 2021-05-28 13:40 | NUR ---
sample builder: Patient was brought into the triage room via wheelchair. Vitals were reassesed and continued to be unchanged.
--- NOTE | 2021-05-28 14:35 | NUR ---
optical technician: Pt to room from lobby at this time via wheelchair
[2021-05-28 15:26] VITALS: BP 128/77
== END 2021-05-28 15:43 | disposition home or self-care (01) ==
LOC: ED 11:30
DX: B34.9 Viral infection, unspecified (principal); Z20.822 Contact with and (suspected) exposure to COVID-19; R05 Cough; R09.81 Nasal congestion; R06.02 Shortness of breath; E11.9 Type 2 diabetes mellitus without complications; F17.200 Nicotine dependence, unspecified, uncomplicated; Z85.41 Personal history of malignant neoplasm of cervix uteri; Z90.49 Acquired absence of other specified parts of digestive tract; Z90.710 Acquired absence of both cervix and uterus; Z90.721 Acquired absence of ovaries, unilateral
CPT/HCPCS: 71045; 99284; U0003; U0005

== ENCOUNTER 2021-06-13 01:04 | Emergency (ER) | payer MEDICAID ==
[~2021-06-13] VITALS: Ht 162.6 cm; Wt 99.0 kg
[2021-06-13 01:12] VITALS: BP 141/80
[2021-06-13] MEDS ORDERED: hydrOXyzine 50MG TABLET ONE (01:48)
--- NOTE | 2021-06-13 01:49 | NUR ---
xray delay: pt wants pain meds before exam
--- NOTE | 2021-06-13 02:22 | NUR ---
Patient refusing XR without pain meds. Patient stated to ERP that she is allergic to Tylenol and already took Ibuprofen. Advised patient that no narcotics will be offerred. Patient angry but stating she will do the XR.
== END 2021-06-13 03:10 | disposition left against medical advice (07) ==
LOC: ED 01:15
DX: S93.492A Sprain of other ligament of left ankle, initial encounter (principal); J02.8 Acute pharyngitis due to other specified organisms; W18.30XA Fall on same level, unspecified, initial encounter; Y93.89 Activity, other specified; Y92.69 Other specified industrial and construction area as the place of occurrence of the external cause; Y99.8 Other external cause status
CPT/HCPCS: 73610; 87081; 87147; 87880; 99284; Q0177